=== PATIENT | male | born 1965 | race Caucasian/White ===

== ENCOUNTER → 2017-07-03 | Outpatient (CLI) | payer OTHER ==
[~2017-07-03] VITALS: Ht 175.3 cm; Wt 73.2 kg
[~2017-07-03] MED LIST: ASPI81CH CHEW; CHLORHEXIDINE GLUCONATE 2 % 1 PACK (2 CLOTHS) TOPICAL PRN; INSULIN HUMAN REGULAR 1,000 UNITS/10 ML VIAL SQ PRN; LACTATED RINGER'S 1000 ML IV PRN; LACTCAP8 PO; METOPROLOL TARTRATE 25 MG TAB PO PRN; MULT-65 PO; POVIDONE IODINE 5% (ANTISEPSIS KIT) 4 APPLICATIONS EACH NARE PRN; PROPOFOL 200 MG/20 ML AMP IV ONE; SODIUM CHLORID 0.9% 500 ML IV PRN
[2017-07-03 12:40] VITALS: BP 123/84; PULSE 70; RESP 16; TEMP 97.1; O2SAT 97
--- NOTE | 2017-07-03 12:40 | GIPROC ---
[facility] [address] [facility]. [facility], [address] COLONOSCOPY PROCEDURE REPORT EXAM DATE: 07/03/2017 PATIENT NAME: Akira Rocha MR #: [id number] BIRTHDATE: 1965 ENDOSCOPIST: Panfilo Haddad MD ORDER #: [id number] ACID LEVELER: Asher Marrero and Leticia Clemens STATUS: outpatient INDICATIONS: The patient is a 51 yr old male here for a colonoscopy due to average risk patient for colorectal cancer PROCEDURE PERFORMED: Colonoscopy, screening MEDICATIONS: Per Anesthesia. PREP QUALITY: good PREP TYPE:Type: PREP TYPE:GoLytely ESTIMATED BLOOD LOSS: None CONSENT: The patient understands the risks and benefits of the procedure and understands that these risks include, but are not limited to: sedation, allergic reaction, infection, perforation and/or bleeding. Alternative means of evaluation and treatment include, among others: physical exam, x-rays, and/or surgical intervention. The patient elects to proceed with this endoscopic procedure. medical equipment was checked for proper function. Hand hygiene and appropriate measures for infection prevention was taken. After the risks, benefits and alternatives of the procedure were thoroughly explained, Informed consent was verified, confirmed and timeout was successfully executed by the treatment team. A digital exam was performed and revealed no abnormalities of the rectum The Pentax EC-[id number] endoscope was introduced through the anus and advanced to the cecum, which was identified by both the appendix and ileocecal valve. The instrument was then slowly withdrawn as the colon was fully examined. COLON FINDINGS: Mild diverticulosis was noted in the sigmoid colon. The scope was then completely withdrawn from the patient and the procedure terminated. PROCEDURE WITHDRAWAL TIME:9minutes ADVERSE EVENTS: There were no complications. IMPRESSIONS: 1. Mild diverticulosis was noted in the sigmoid colon 2. Was performed 3. Revealed no abnormalities of the rectum RECOMMENDATIONS: High fiber diet (25gm/day) with consumption of at least two quarts of fluid/day. Repeat colonoscopy in ten years. RECALL: Panfilo Haddad MD eSigned: Panfilo Haddad MD 07/03/2017 12:40 PM cc: Dr. Hailee Curtis.
--- NOTE | 2017-07-03 20:35 | EKG ---
Date Performed: 07/03/2017 Time Performed: 11:34:33 PTAGE: 51 years EKG: Sinus rhythm WITH FIRST DEGREE AV BLOCK POSSIBLE RIGHT VENTRICULAR CONDUCTION DELAY ABNORMAL ECG NO PREVIOUS TRACING DOCTOR: Eddi Rea Interpretating Date/Time 07/03/2017 20:34:29
== END ==
LOC: HEND 10:43
DX: Z12.11 Encounter for screening for malignant neoplasm of colon (principal); K57.90 Diverticulosis of intestine, part unspecified, without perforation or abscess without bleeding; R94.31 Abnormal electrocardiogram [ECG] [EKG]
CPT/HCPCS: 93005